=== PATIENT | male | born 1955 | race Caucasian/White ===

== ENCOUNTER 2023-08-15 06:04 | Emergency (ER) | payer OTHER ==
[2023-08-15 06:17] VITALS: BMI 29.7
[2023-08-15 07:06] LABS: BASO % 0.9 % (0-2.0); EOS % 4.5 % (0-4.5); HEMATOCRIT 41.8 % (35.4-49); HEMOGLOBIN 13.4 GM/dL (11.7-16.9); LYMPH % 20.8 % (8-40); MCH 24.6 pg (25.7-33.7); MCHC 32.2 g/dl (32.0-35.9); MEAN CELL VOLUME 76.5 fl (80-96); MEAN PLT VOLUME 9.1 fl (7.5-11.1); MONO % 8.4 % (3.8-10.2); NEUT % 65.4 % (42.8-82.8); PLATELET COUNT 347 10^3/uL (134-434); RBC 5.46 M/mm3 (4.00-5.60); RDW 16.7 % (11.9-15.9)
[2023-08-15 07:15] LABS: INR 1.05 (0.83-1.09); PROTHROMBIN TIME (PATIENT) 12.2 SEC (9.7-13.0)
[2023-08-15 07:17] LABS: ACTIVATED PTT 28.5 SECONDS (25.2-36.5)
[2023-08-15 07:29] LABS: POTASSIUM 3.9 mmol/L (3.5-5.1)
[2023-08-15 07:32] LABS: MAGNESIUM 2.2 mg/dL (1.8-2.4)
[2023-08-15 07:33] LABS: ALBUMIN 3.6 g/dl (3.4-5.0); CALCIUM 8.7 mg/dL (8.5-10.1)
[2023-08-15 07:34] LABS: BLOOD UREA NITROGEN 22.9 mg/dL (7-18)
[2023-08-15 07:35] LABS: CREATININE 1.2 mg/dL (0.55-1.3)
[2023-08-15 07:37] LABS: TOT PROT 7.2 g/dl (6.4-8.2)
[2023-08-15 07:38] LABS: BILIRUBIN,TOTAL 0.4 mg/dL (0.2-1)
[2023-08-15] MEDS ORDERED: ACETAMINOPHEN INJECTION 100 ML IVPB ONE (07:43)
[2023-08-15] MEDS ORDERED: MECLIZINE HCL 25 MG TABLET (FP) ONE ×2 (07:43→10:33)
[2023-08-15] MEDS ORDERED: ONDANSETRON 4 MG/2 ML VIAL ONE (07:44)
[2023-08-15] MEDS: ONDANSETRON 4 MG/2 ML VIAL IVPUSH ONE (07:58)
[2023-08-15] MEDS: SODIUM CHLORIDE 0.9% 500 ML INFUS.BAG IV ONE (07:58)
[2023-08-15] MEDS: MECLIZINE HCL 25 MG TABLET (FP) PO ONE ×2 (07:58→10:36)
[2023-08-15] MEDS: ACETAMINOPHEN 1000 MG/100 ML BAG IVPB ONE (07:58)
[2023-08-15] MEDS ORDERED: METOCLOPRAMIDE HCL INJECTION 10 MG/2 ML VIAL ONE (09:25)
[2023-08-15] MEDS: METOCLOPRAMIDE HCL INJECTION 10 MG/2 ML VIAL IVPB ONE (09:40)
[2023-08-15 09:54] VITALS: RESP 20; TEMP 98.2
[2023-08-15] MEDS ORDERED: diazePAM CARPU-JECT 10 MG/2 ML DISP.SYRIN ONE (10:33)
[2023-08-15] MEDS: diazePAM CARPU-JECT 10 MG/2 ML DISP.SYRIN IVPUSH ONE (10:36)
[2023-08-15 14:22] VITALS: BP 134/72; PULSE 61
== END 2023-08-15 17:16 | disposition home or self-care (01) ==
LOC: JER 06:04
PROC: 3E030GC Introduction of Other Therapeutic Substance into Peripheral Vein, Open Approach (ICD-10-PCS; principal; 2023-08-15)
PROC: 3E030GC Introduction of Other Therapeutic Substance into Peripheral Vein, Open Approach (ICD-10-PCS; 2023-08-15)
PROC: 3E030GC Introduction of Other Therapeutic Substance into Peripheral Vein, Open Approach (ICD-10-PCS; 2023-08-15)
PROC: 3E030GC Introduction of Other Therapeutic Substance into Peripheral Vein, Open Approach (ICD-10-PCS; 2023-08-15)
DX: R11.2 Nausea with vomiting, unspecified (principal); R42 Dizziness and giddiness; R51.9 Headache, unspecified; R05.9 Cough, unspecified; Z20.822 Contact with and (suspected) exposure to COVID-19
CPT/HCPCS: 0241U-QW; 36415; 70450-TC; 70496-TC; 70498-TC; 71045-TC-FY; 71250-TC; 80053; 80061; 82550; 83036; 83615; 83735; 84484; 85025; 85610; 85730; 86850; 86900; 86901; 87040; 93005; 93010; 96374; 96375; 99285-25; J0131